=== PATIENT | male | born 1945 | race Caucasian/White ===

== ENCOUNTER 2017-07-11 20:54 | Emergency (ER) | payer MEDICARE ==
[~2017-07-11] VITALS: Ht 165.1 cm; Wt 69.9 kg
--- NOTE | 2017-07-11 21:15 | NUR ---
[facility] called, spoke with Leyla concerning transfer for code STEMI. 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
--- NOTE | 2017-07-11 21:20 | NUR ---
Patient walked in to ER c/o CP. Patient states that this afternoon he played tennis and had some shoulder discomfort which he disregarded due to his activity. However, patient states at dinner (approximately 1999) he felt 7/10 chest pain while eating. Patient to room 4A, ERMD perform MSE.
[2017-07-11 21:22] VITALS: BP 95/61
--- NOTE | 2017-07-11 21:30 | NUR ---
Patient Tranfers to outside Facility Physician: Dr. DAVILA Location: [facility]
[2017-07-11] MEDS ORDERED: NASAL ALLERGY SPRAY (21:31)
[2017-07-11] MEDS ORDERED: CRESTOR (21:31)
--- NOTE | 2017-07-11 21:31 | NUR ---
5,000 units of Heparin IVP given as per verbal order from Dr. Aggarwal. Medication double checked with [facility].
[2017-07-11 21:33] LABS: CREATININE 1.2 mg/dL (0.6-1.3); POTASSIUM 3.2 mmol/L (3.5-5.1)
--- NOTE | 2017-07-11 21:33 | NUR ---
911 ACLS transport at bedside.
[2017-07-11 21:40] LABS: BASOPHILS # (AUTO) 0.1 K/uL (0.0-8.0); BASOPHILS % (AUTO) 0.6 % (0.0-2.0); EOSINOPHILS # (AUTO) 0.3 K/uL (0.0-0.7); EOSINOPHILS % (AUTO) 2.8 % (0.0-7.0); HEMATOCRIT 43.4 % (40-50); HEMOGLOBIN 14.4 G/DL (14.0-18.0); LYMPHOCYTES # (AUTO) 2.3 K/UL (0.8-4.8); LYMPHOCYTES % (AUTO) 19.8 % (20.5-51.5); MEAN CORPUSCULAR HEMOGLOBIN 29.2 UUG (27.0-31.0); MEAN CORPUSCULAR HGB CONC 33 g/dL (32.0-37.0); MEAN CORPUSCULAR VOLUME 88.3 FL (82.0-92.0); MONOCYTES % (AUTO) 8.4 % (0.0-11.0); NEUTROPHILS # (AUTO) 7.8 K/UL (1.8-8.9); NEUTROPHILS % (AUTO) 68.4 % (38.5-71.5); PLATELET COUNT (AUTO) 194 K/UL (150-450); RED BLOOD CELL COUNT(AUTO) 4.92 MIL/UL (4.7-6.1); WHITE BLOOD COUNT (AUTO) 11.5 K/UL (4.0-11.2)
[2017-07-11 21:46] LABS: BILIRUBIN,DIRECT 0.1 mg/dL (0.0-0.2); BILIRUBIN,TOTAL 0.6 mg/dL (0.2-1.0); TOTAL PROTEIN, SERUM 6.9 g/dL (6.4-8.2)
== END 2017-07-11 21:35 | disposition short-term general hospital (02) ==
LOC: ER 20:55
DX: I21.19 ST elevation (STEMI) myocardial infarction involving other coronary artery of inferior wall (principal); E78.00 Pure hypercholesterolemia, unspecified; I70.0 Atherosclerosis of aorta
CPT/HCPCS: 36415; 70030-TC; 71010; 83690; 85025; 85730; 93005; A4663; J1642; J1644; J2405; J7030